=== PATIENT | female | born 1940 | race Caucasian/White ===

== ENCOUNTER 2023-04-17 00:35 | Outpatient (CLI) | payer OTHER, SELFPAY | END 2023-04-17 00:36 | disposition home or self-care (01) | LOC: AMB 05-21 14:43 | PROVIDERS: Visit Provider Family Medicine | DX: R07.89 Other chest pain (principal); R42 Dizziness and giddiness; I95.9 Hypotension, unspecified | CPT/HCPCS: A0425; A0434 ==